=== PATIENT | female | born 1975 | race Caucasian/White ===

== ENCOUNTER 2018-01-01 07:32 | Emergency (ER) | payer OTHER ==
[2018-01-01 07:46] VITALS: BP 149/83; PULSE 59; TEMP 97.7; BMI 44.8
[2018-01-01] MEDS ORDERED: ACETAMINOPHEN 500 MG TABLET (FP) PO ONE (08:03)
[2018-01-01] MEDS ORDERED: ACETAMINOPHEN 325 MG TABLET (FP) ONE (08:08)
--- NOTE | 2018-01-01 08:10 | PDOC ---
History of Present Illness <Robert Ramirez - Last Filed: 01/01/18 09:18> - History of Present Illness Initial Comments: 01/01/18 08:18 "The patient is a 42 year old female with a significant PMH of PCOS who presents to the emergency department with left ankle pain beginning approximately this morning. The patient reports waking this morning with left ankle pain radiating towards her foot. She reports her L ankle hurts when she walks, but she can still ambulate normally. She states she was not experiencing this pain yesterday, She denies any recent injuries. She denies taking any medications for pain. She denies prior history of gout or prior similar left ankle pain. The patient denies chest pain, shortness of breath, headache, and dizziness. Denies fevers, chills, nausea, vomit, diarrhea, and constipation. Denies dysuria, frequency, urgency, and hematuria. Allergies: NKA Past surgical history: Appendectomy. Social history: No reported cigarette, alcohol, or drug use. PCP: Dr. Call. " <Ap Prakash - Last Filed: 01/01/18 10:08> - General Chief Complaint: Pain Stated Complaint: RIGHT FOOT AND ANKLE PAIN Time Seen by Provider: 01/01/18 07:53 Past History <Robert Ramirez - Last Filed: 01/01/18 09:18> - Past Medical History Asthma: No Cancer: No Cardiac Disorders: No COPD: No Diabetes: No HTN: No Seizures: No Thyroid Disease: No - Surgical History Appendectomy: Yes - Reproductive History (#): 3 Para: 1 Cervical CA: No Dysfunctional Uterine Bleeding: No Ectopic : No Endometrial CA: No Polycystic Ovaries: Yes Therapeutic (s) & number: No Tubal Ligation: No - Immunization History Td Vaccination: Yes TDAP Vaccination: Yes Immunization Up to Date: Yes - Suicide/Smoking/Psychosocial Hx Smoking Status: No Smoking History: Never smoked Years of Tobacco Use: 0 Number of Cigarettes Smoked Daily: 0 Cigars Per Day: 0 Hx Alcohol Use: No Drug/Substance Use Hx: No Substance Use Type: None Hx Substance Use Treatment: No <Ap Prakash - Last Filed: 01/01/18 10:08> - Past Medical History Allergies/Adverse Reactions: Allergies Allergy/AdvReac Type Severity Reaction Status Date / Time No Known Allergies Allergy Verified 01/01/18 07:45 Home Medications: Ambulatory Orders NK [No Known Home Medication] 01/01/18 Review of Systems - Review of Systems Comments:: 01/01/18 08:18 "GENERAL/CONSTITUTIONAL: No fever or chills. No weakness. HEAD, EYES, EARS, NOSE AND THROAT: No change in vision. No ear pain or discharge. No sore throat. CARDIOVASCULAR: No chest pain or shortness of breath. RESPIRATORY: No cough, wheezing, or hemoptysis. GASTROINTESTINAL: No nausea, vomiting, diarrhea or constipation. GENITOURINARY: No dysuria, frequency, or change in urination. MUSCULOSKELETAL: (+) Left ankle pain. No neck or back pain. SKIN: No rash NEUROLOGIC: No headache, vertigo, loss of consciousness, or change in strength/ sensation. ENDOCRINE: No increased thirst. No abnormal weight change. HEMATOLOGIC/LYMPHATIC: No anemia, easy bleeding, or history of blood clots. ALLERGIC/IMMUNOLOGIC: No hives or skin allergy. " <Ap Prakash - Last Filed: 01/01/18 10:08> *Physical Exam - Vital Signs Last Vital Signs Temp Pulse Resp BP Pulse Ox 97.7 F 59 L 18 149/83 100 01/01/18 07:43 01/01/18 07:43 01/01/18 07:43 01/01/18 07:43 01/01/18 07:43 <Robert Ramirez - Last Filed: 01/01/18 09:18> - Vital Signs Last Vital Signs Temp Pulse Resp BP Pulse Ox 97.7 F 59 L 18 149/83 100 01/01/18 07:43 01/01/18 07:43 01/01/18 07:43 01/01/18 07:43 01/01/18 07:43 - Physical Exam Comments: 01/01/18 08:18 "GENERAL: Awake, alert, and fully oriented, in no acute distress. HEAD: No signs of trauma EYES: PERRLA, EOMI, sclera anicteric, conjunctiva clear ENT: Auricles normal inspection, hearing grossly normal, nares patent, oropharynx clear without exudates. Moist mucosa NECK: Nontender, no stepoffs, Normal ROM, supple, no lymphadenopathy, JVD, or masses LUNGS: Breath sounds equal, clear to auscultation bilaterally. No wheezes, and no crackles HEART: Regular rate and rhythm, normal S1 and S2, no murmurs, rubs or gallops ABDOMEN: Soft, nontender, normoactive bowel sounds. No guarding, no rebound. No masses EXTREMITIES: +L ankle with mild tenderness posterior to lateral malleolus, no deformity, Normal range of motion, no edema. No clubbing or cyanosis. No cords, erythema, or tenderness NEUROLOGICAL: Cranial nerves II through XII intact. 5/5 strength and sensation in all extremities, Normal speech, normal gait, normal cerebellar function SKIN: Warm, Dry, normal turgor, no rashes or lesions noted. " <Ap Prakash - Last Filed: 01/01/18 10:08> ED Treatment Course - ADDITIONAL ORDERS Additional order review: Laboratory Results 01/01/18 08:55 Urine HCG, Qual Negative - Medications Given in the ED: ED Medications Discontinued Medications Generic Name Dose Route Start Last Admin Trade Name Freq PRN Reason Stop Dose Admin Acetaminophen 1,000 mg 01/01/18 08:03 01/01/18 08:17 Tylenol - PO 01/01/18 08:04 1,000 mg ONCE ONE Administration <Robert Ramirez - Last Filed: 01/01/18 09:18> - RADIOLOGY Radiology Studies Ordered: Category Date Time Status ANKLE-LEFT [RAD] Stat Radiology 01/01/18 08:00 Ordered <Ap Prakash - Last Filed: 01/01/18 10:08> Medical Decision Making - Medical Decision Making 01/01/18 08:04 42 F with atraumatic L ankle pain. Exam notable for tenderness behind lateral malleolus. Low suspicion for acute fx, but given tenderness will r/o with X- ray. Likely mild ankle sprain, as pt with no significant effusion and able to ambulate. - XR L ankle - Pain control 01/01/18 10:07 XR negative. Pt ambulatory with no assistance, stable gait. Pt is well appearing, with normal vitals. Clinically stable for DC at this time. I discussed the physical exam findings, ancillary test results and final diagnoses with the patient. I answered all of the patient's questions. The patient was satisfied with the care received and felt comfortable with the discharge plan and treatment plan. The patient agrees to follow up with the primary care physician within 24-72 hours. <Ou,Ap - Last Filed: 01/01/18 10:08> *DC/Admit/Observation/Transfer - Attestations Scribe Attestion: 01/01/18 09:19 Documentation prepared by Robert Ramirez, acting as medical research associate for Ap Prakash MD. <Robert Ramirez - Last Filed: 01/01/18 09:18> - Attestations Physician Attestion: 01/01/18 10:07 I, Dr. Ap Prakash MD, attest that this document has been prepared under my direction and personally reviewed by me in its entirety. I further attest, that it accurately reflects all work, treatment, procedures and medical decision -making performed by me. <Ap Prakash - Last Filed: 01/01/18 10:08> Diagnosis at time of Disposition: Ankle sprain - Discharge Dispostion Disposition: HOME - Referrals Referrals: Lauro Call MD [Primary Care Provider] - Xavi Alarcon MD [Staff Physician] - - Patient Instructions Printed Discharge Instructions: DI for Ankle Sprain Additional Instructions: Try to keep your leg elevated and apply ice as needed to reduce swelling. Avoid bearing weight when possible. If you experience worsening pain, swelling, redness, difficulty walking, or any other concerning symptoms, return to the ER immediately. If you continue to have pain in 48 hours, follow up with an orthopedist for further evaluation. You may need an MRI to rule out ligament injury. Call the number provided to make an appointment with our orthopedist. - Post Discharge Activity
== END 2018-01-01 10:13 | disposition home or self-care (01) ==
LOC: JER 07:32
DX: S93.402A Sprain of unspecified ligament of left ankle, initial encounter (principal); X58.XXXA Exposure to other specified factors, initial encounter; Y93.89 Activity, other specified; Y92.89 Other specified places as the place of occurrence of the external cause; Y99.8 Other external cause status; E28.2 Polycystic ovarian syndrome
CPT/HCPCS: 73610-TC-LT-FY; 84703; 99282-25

== ENCOUNTER 2018-04-16 18:59 | Emergency (ER) | payer OTHER ==
[2018-04-16 19:08] VITALS: BP 133/75; PULSE 70; TEMP 98.1; BMI 44.8
--- NOTE | 2018-04-16 19:29 | PDOC ---
History of Present Illness - General Chief Complaint: Lightheaded Stated Complaint: DIZZINESS Time Seen by Provider: 04/16/18 19:16 History Source: Patient Exam Limitations: No Limitations - History of Present Illness Initial Comments: 04/16/18 19:44 42 year old female with PCOS presents to ED complaining of headache x3 days associated with lightheadedness. She states her headache is located at the top of her head, 9/10, will move to the back of her head if she lays flat, worse when she lies flat, better when she sits up, not alleviated by Mortin or Tylenol. She admits to photophobia. She denies fever, chills, nausea, vomiting, diarrhea, abdominal pain, chest pain, cough, dizziness like the room is spinning , dysuria, hematuria, blood in stool. She states she will become short of breath when she lays on her side. She states she has a history of headaches, but that they usually go away in an hour or so with Tylenol use. Allergies - NKDA Denies etoh use, nicotine use, or illicit drug use. LMP - 04/09/18 Surgical history - appendectomy, section. Past History - Past Medical History Allergies/Adverse Reactions: Allergies Allergy/AdvReac Type Severity Reaction Status Date / Time No Known Allergies Allergy Verified 01/01/18 07:45 Home Medications: Ambulatory Orders Acetaminophen [Tylenol -] 1,000 mg PO Q6H #12 tablet 04/16/18 Sulfamethoxazole/Trimethoprim [Bactrim Ds -] 1 tab PO BID #5 tablet 04/16/18 Asthma: No Cancer: No Cardiac Disorders: No COPD: No Diabetes: No HTN: No Seizures: No Thyroid Disease: No Other medical history: denies - Surgical History Appendectomy: Yes - Reproductive History (#): 3 Para: 1 Cervical CA: No Dysfunctional Uterine Bleeding: No Ectopic : No Endometrial CA: No Polycystic Ovaries: Yes Therapeutic (s) & number: No Tubal Ligation: No - Immunization History Td Vaccination: Yes TDAP Vaccination: Yes Immunization Up to Date: Yes - Suicide/Smoking/Psychosocial Hx Smoking Status: No Smoking History: Never smoked Years of Tobacco Use: 0 Number of Cigarettes Smoked Daily: 0 Cigars Per Day: 0 Information on smoking cessation initiated: No Hx Alcohol Use: No Drug/Substance Use Hx: No Substance Use Type: None Hx Substance Use Treatment: No Review of Systems - Review of Systems Able to Perform ROS?: Yes Comments:: 04/16/18 19:47 General: denies fever, chills, night sweats, generalized weakness. HEENT: admits to photophobia. denies sore throat, rhinorrhea, ear pain. Heart: admits lightheadedness. denies chest pain, palpitations, syncope, lower extremity swelling, diaphoresis. Respiratory: admits shortness of breath. denies cough, sputum production, hematemesis. Abdomen: denies abdominal pain, nausea, vomiting, diarrhea, constipation, blood in stool. : denies dysuria, increased urinary frequency, hematuria, urinary incontinence , flank pain. Back: denies back pain, flank pain. Musculoskeletal: denies joint pain, muscle pain, joint swelling. Neurological: admits headache. denies dizziness, numbness, tingling, weakness. Skin: denies rash, laceration, abrasion. *Physical Exam - Vital Signs Last Vital Signs Temp Pulse Resp BP Pulse Ox 98.1 F 70 20 133/75 99 04/16/18 19:05 04/16/18 19:05 04/16/18 19:05 04/16/18 19:05 04/16/18 19:05 - Physical Exam Comments: 04/16/18 19:48 Appearance: comfortable. HEENT: head is normocephalic, atraumatic. EOMI. PERRLA. mydriasis bilaterally, 6.5 mm pupils. Neck: supple. Full ROM. Heart: regular rhythm. no murmurs, rubs or gallops. No pericardial friction rub. Lungs: clear to auscultation bilaterally. no crackles, rhonchi or wheezing. no stridor. Abdomen: soft, nontender. normal bowel sounds. no rebound, guarding, masses. Extremities: Peripheral pulses intact and equal. No lower extremity edema. Neurological: Alert. Oriented x3. CN2-12 intact. 5/5 strength all extremities. Full sensation all extremities and bilateral face. Romberg negative. Finger to nose normal. Gait normal. Rapid alternating movements normal. Heart Score/ECG Review - ECG Impressions Comment:: 04/16/18 19:56 Rate 68. regular rhythm. normal axis, no acute ST changes. ED Treatment Course - LABORATORY CBC & Chemistry Diagram: 04/16/18 20:06 04/16/18 20:06 Medical Decision Making - Medical Decision Making 04/16/18 21:08 42 year old female with PMH PCOS presenting for headache x3 days. 05/23. Initial Vital Signs Temp Pulse Resp BP Pulse Ox 98.1 F 70 20 133/75 99 04/16/18 19:05 04/16/18 19:05 04/16/18 19:05 04/16/18 19:05 04/16/18 19:05 Afebrile. No tachycardia. No hypotension. No hypoxia. Pending labs, UA, EKG, Head CT. EKG normal. UA reveals UTI. Bactrim ordered. Blood work normal. Urine test negative. Benadryl, Reglan, Tylenol, fluids ordered. 04/16/18 21:39 Pt reassessed, states her headache is now a 11/20. 04/16/18 21:57 CT head preliminary report - negative for acute hemorrhage or acute infarction. Pt will be discharged with strict return precautions. Prescription sent for Bactrim. *DC/Admit/Observation/Transfer Diagnosis at time of Disposition: Headache, Urinary tract infection - Discharge Dispostion Disposition: HOME Condition at time of disposition: Improved Decision to Admit order: No - Prescriptions Prescriptions: Acetaminophen [Tylenol -] 1,000 mg PO Q6H #12 tablet Sulfamethoxazole/Trimethoprim [Bactrim Ds -] 1 tab PO BID #5 tablet - Referrals - Patient Instructions Printed Discharge Instructions: DI for Urinary Tract Infection (UTI) Additional Instructions: You were seen today for headache. You were given intravenous Reglan, Benadryl and Tylenol, as well as intravenous fluids. Your head CT was negative. I sent a prescription for Tylenol to your pharmacy. Drink lots of water to stay hydrated. Get at least 8 hours of sleep tonight. Your urine analysis revealed a urinary tract infection. You were given the first dose of an antibiotic to treat your infection. I have prescribed you Bactrim and sent the prescription to your pharmacy. Take all of your pills as instructed, do not miss any doses of your antibiotic. Take a probiotic with your antibiotics to prevent antibiotic induced diarrhea. Please follow up with your primary care provider within 7 days. Please bring the paperwork given to you today with you for this appointment. Return to the Emergency Department for increasing pain, blood in urine, flank pain, back pain, abdominal pain, fever, chills, chest pain, shortness of breath , nausea, vomiting or any other new, worsening or concerning symptoms. - Post Discharge Activity Forms/Work/School Notes: Back to Work
--- NOTE | 2018-04-16 19:52 | PDOC ---
Attending Attestation - HPI HPI: 04/16/18 20:11 The patient is a 42 year old female, with a significant PMH of PCOS, who presents to the emergency department with 3 days of headache. The patient states the headache is rated 9/10 in intensity, located on the top of her head, made worse when lying down and alleviated while sitting up. The patient states she has tried Tylenol and Aleve for the headache with minimal relief. The patient states she has a history of headaches which normally resolve with Tylenol/ Aleve. The patient also endorses lightheadedness, photophobia and states she has shortness of breath while lying on her side. The patient denies chest pain, palpitations, leg swelling or calf tenderness. Denies fever, chills, nausea, vomit, diarrhea and constipation. Denies dysuria, frequency, urgency and hematuria. Allergies: NKA Past surgical history: appendectomy, section. Social history: No reported - Physicial Exam PE: 04/16/18 20:13 GENERAL: Awake, alert, and fully oriented, in no acute distress HEAD: No signs of trauma EYES: +Mydriasis bilaterally, 6.5 mm pupils. PERRLA, EOMI, sclera anicteric, conjunctiva clear ENT: Auricles normal inspection, hearing grossly normal, nares patent, oropharynx clear without exudates. Moist mucosa NECK: Normal ROM, supple, no lymphadenopathy, JVD, or masses LUNGS: Breath sounds equal, clear to auscultation bilaterally. No wheezes, and no crackles HEART: Regular rate and rhythm, normal S1 and S2, no murmurs, rubs or gallops ABDOMEN: Soft, nontender, normoactive bowel sounds. No guarding, no rebound. No masses EXTREMITIES: Normal range of motion, no edema. No clubbing or cyanosis. No cords, erythema, or tenderness NEUROLOGICAL: Cranial nerves II through XII grossly intact. Normal speech, normal gait SKIN: Warm, Dry, normal turgor, no rashes or lesions noted. <Saravanan Auguste - Last Filed: 04/16/18 20:13> - Resident Resident Name: Asia Grande - ED Attending Attestation I have performed the following: I have examined & evaluated the patient, The case was reviewed & discussed with the resident, I agree w/resident's findings & plan - Medical Decision Making 04/16/18 21:41 Pt has a UTI, and her SAAVEDRA is a 3/9 with treatment in the ER 04/16/18 21:42 Other labs are normal 04/16/18 22:31 Patient Name: DAMIAN DAVILA THIS IS A PRELIMINARY REPORT FROM [facility] DATE OF SERVICE: 2018-04-16 21:17:10 IMAGES: 142 EXAM: CT head without contrast HISTORY: Headache COMPARISON: None. FINDINGS: There is no evidence of acute infarction. There is no hemorrhage. No mass lesion is seen. There is mild hyperostosis frontalis interna. There is no skull fracture is seen. Mucous retention cysts noted in the left maxillary sinus. There is no free fluid in the sinus cavities. Mastoid air cells are normally pneumatized. Individualized dose optimization techniques were used for this CT. THIS DOCUMENT HAS BEEN ELECTRONICALLY SIGNED Pt feeling better and she will be discharged home. <Paulette Medina - Last Filed: 04/16/18 22:31> Heart Score/ECG Review - ECG Intrepretation Rhythm: Regular Rhythm - [place]: Normal - ST and T Early Repolarization: No Non Specific ST-T Wave changes: Yes Flattened T Waves: No Prolonged Q-T Interval: No - ECG Impressions Normal ECG: Yes Non-specific ST Elevation: No Ischemic Changes: No Bradycardia: No Torsades renu Pointes: No WPW: No <Paulette Medina - Last Filed: 04/16/18 22:31> Attestations - Attestations 04/16/18 20:12 Documentation prepared by Saravanan Auguste, acting as center medical director for Paulette Medina MD. <Saravanan Auguste - Last Filed: 04/16/18 20:13>
[2018-04-16] MEDS ORDERED: METOCLOPRAMIDE HCL INJECTION 10 MG/2 ML VIAL IVPUSH ONE (20:01)
[2018-04-16] MEDS ORDERED: ACETAMINOPHEN 1000 MG/100 ML VIAL (NON FORMULARY) IVPB ONE (20:01)
[2018-04-16] MEDS ORDERED: SODIUM CHLORIDE 1,000 ML IV STA (20:02)
[2018-04-16] MEDS ORDERED: METOCLOPRAMIDE HCL INJECTION 10 MG/2 ML VIAL ONE (20:20)
[2018-04-16] MEDS ORDERED: ACETAMINOPHEN INJECTION 100 ML IVPB ONE (20:21)
[2018-04-16 20:25] LABS: BASO % 0.9 % (0-2.0); EOS % 2.1 % (0-4.5); HEMATOCRIT 36.2 % (32.4-45.2); HEMOGLOBIN 12.2 GM/dL (10.7-15.3); LYMPH % 36.8 % (8-40); MCH 26.2 pg (25.7-33.7); MCHC 33.8 g/dl (32.0-36.0); MEAN CELL VOLUME 77.3 fl (80-96); MEAN PLT VOLUME 8.4 fl (7.5-11.1); MONO % 7.7 % (3.8-10.2); NEUT % 52.5 % (42.8-82.8); PLATELET COUNT 297 K/MM3 (134-434); RBC 4.68 M/mm3 (3.60-5.2); RDW 16.6 % (11.6-15.6); WHITE BLOOD COUNT 6.4 K/mm3 (4.0-10.0)
[2018-04-16 20:37] LABS: PROTHROMBIN TIME (PATIENT) 11.3 SEC (9.7-13.0)
[2018-04-16 20:48] LABS: ALBUMIN 3.4 g/dl (3.4-5.0); ALK PHOS 83 U/L (45-117); ANION GAP 9 (8-16); BILIRUBIN,TOTAL 0.3 mg/dL (0.2-1.0); BLOOD UREA NITROGEN 13 mg/dL (7-18); CALCIUM 9.1 mg/dL (8.5-10.1); CHLORIDE 109 mmol/L (98-107); CO2 27 mmol/L (21-32); CREATININE 0.8 mg/dL (0.55-1.02); GLUCOSE,RANDOM 100 mg/dL (74-106); SGPT/ALT 25 U/L (12-78); SODIUM 145 mmol/L (136-145)
[2018-04-16 20:59] LABS: URINE APPEARANCE SLCLOUDY; URINE BILIRUBIN NEGATIVE (<2.0 mg/dL); URINE COLOR YELLOW; URINE GLUCOSE (UA) NEGATIVE (NEGATIVE); URINE KETONE NEGATIVE (NEGATIVE); URINE LEUK ESTERASE 3+ (NEGATIVE); URINE NITRITE NEGATIVE (NEGATIVE); URINE PROTEIN NEGATIVE (NEGATIVE); URINE UROBILINOGEN NEGATIVE mg/dL (0.2-1.0)
[2018-04-16 21:04] LABS: EPI CELLS MANY /HPF (FEW); URINE HYALINE CAST 1 /lpf; URINE MUCUS RARE
[2018-04-16] MEDS ORDERED: SULFAMETHOXAZOLE/TRIMETHOPRIM 800MG/160MG D.S. TABLET PO ONE (21:08)
[2018-04-16 21:26] LABS: POTASSIUM 4.3 mmol/L (3.5-5.1)
[2018-04-16 21:27] LABS: SGOT/AST 24 U/L (15-37)
[2018-04-16 21:31] LABS: ACTIVATED PTT 30.4 SECONDS (25.2-36.5)
[2018-04-16] MEDS ORDERED: SULFAMETHOXAZOLE/TRIMETHOPRIM 800MG/160MG D.S. TABLET ONE (21:42)
--- NOTE | 2018-04-17 20:02 | EKG ---
Test Reason : Blood Pressure : / mmHG Vent. Rate : 068 BPM Atrial Rate : 068 BPM P-R Int : 132 ms QRS Dur : 084 ms QT Int : 390 ms P-R-T Axes : 039 007 023 degrees QTc Int : 414 ms NORMAL SINUS RHYTHM WITH SINUS ARRHYTHMIA MINIMAL VOLTAGE CRITERIA FOR LVH, MAY BE NORMAL VARIANT NONSPECIFIC ST ABNORMALITY ABNORMAL ECG NO PREVIOUS ECGS AVAILABLE Confirmed by JESÚS CARRASQUILLO MD ([id number]) on 04/17/2018 8:02:38 PM Referred By: Confirmed By:JESÚS CARRASQUILLO MD
== END 2018-04-16 22:25 | disposition home or self-care (01) ==
LOC: JER 18:59
PROC: 3E033NZ Introduction of Analgesics, Hypnotics, Sedatives into Peripheral Vein, Percutaneous Approach (ICD-10-PCS; principal; 2018-04-16)
PROC: 3E033GC Introduction of Other Therapeutic Substance into Peripheral Vein, Percutaneous Approach (ICD-10-PCS; 2018-04-16)
PROC: 3E0337Z Introduction of Electrolytic and Water Balance Substance into Peripheral Vein, Percutaneous Approach (ICD-10-PCS; 2018-04-16)
DX: N39.0 Urinary tract infection, site not specified (principal); R51 Headache; E28.2 Polycystic ovarian syndrome
CPT/HCPCS: 36415; 70450-TC; 80053; 81003; 81015; 84703; 85025; 85027; 85610; 85730; 93005; 93010; 99283-25; J0131; J7030

== ENCOUNTER → 2018-06-02 | Day surgery (SDC) | payer OTHER ==
--- NOTE | 2018-06-06 14:29 | PATH ---
Cytology Non-Gynecological Report Patient Name: DAMIAN DAVILA [facility]. Rec. #: [id number] /Age/Gender: 1975 (Age: 42) / F Account: [id number] Location: RADIOLOGY INTER Taken: 06/02/2018 Received: 06/02/2018 Reported: 06/06/2018 Physicians: Angie Leija M.D. Specimen(s) Received THYROID FNA LEFT Clinical History Left thyroid nodule, 1.53 x 0.61 x 1.08 centimeter Final Diagnosis THYROID, LEFT, FINE NEEDLE ASPIRATION: SATISFACTORY FOR EVALUATION. BETHESDA IV: SUSPICIOUS FOR FOLLICULAR NEOPLASM. FOLLICULAR CELLS WITH MILD NUCLEAR ENLARGEMENT, INTRANUCLEAR CLEARING, AND SUBTLE NUCLEAR GROOVES DISPERSED CELLULAR FRAGMENTS, SYNCYTIAL AGGREGATES, AND FEW MICROFOLLICLES. SEE COMMENT. Comment: Immunohistochemical stains performed at [place], [place] ([id number]) and interpreted at [facility] show chromogranin and calcitonin are negative. Differential diagnosis includes a follicular neoplasm (adenoma/carcinoma), follicular variant of papillary thyroid carcinoma, and Non-invasive follicular thyroid neoplasm with papillary-like nuclear features (NIFTP). Case seen interdepartmentally. Electronically Signed Alesia Garcia M.D. Gross Description Received are eight direct smears, four of which are air-dried and Diff-Quik stained, and four of which are alcohol fixed and Pap stained. Also received is 20 ml of bloody formalin from which one cellblock is prepared.
== END | disposition home or self-care (01) ==
LOC: JRADIR 08:53
PROVIDERS: ATTEND Internal Medicine Endocrinology, Diabetes & Metabolism
PROC: 0G9G3ZX Drainage of Left Thyroid Gland Lobe, Percutaneous Approach, Diagnostic (ICD-10-PCS; principal; 2018-06-02)
DX: E04.1 Nontoxic single thyroid nodule (principal)
CPT/HCPCS: 76942; 88173; 88305-TC

== ENCOUNTER 2018-08-27 11:29 | Emergency (ER) | payer OTHER ==
[2018-08-27 11:38] VITALS: BP 135/86; PULSE 104; TEMP 99.6; BMI 43.9
[2018-08-27] MEDS ORDERED: IBUPROFEN 600 MG TABLET (FP) PO ONE (11:45)
--- NOTE | 2018-08-27 11:45 | PDOC ---
History of Present Illness - General Chief Complaint: Cold Symptoms Stated Complaint: SORE THROAT,HEADACHE, COLD Time Seen by Provider: 08/27/18 11:45 History Source: Patient - History of Present Illness Initial Comments: 08/27/18 12:11 42 year old female with 4 days of tactile temps, chills, sorethroat and lymphadenopathy. denies NVD, abdominal pain, urinary symptoms, chest pain Past History - Past Medical History Allergies/Adverse Reactions: Allergies Allergy/AdvReac Type Severity Reaction Status Date / Time No Known Allergies Allergy Verified 08/27/18 11:36 Home Medications: Ambulatory Orders Acetaminophen [Tylenol -] 1,000 mg PO Q6H #12 tablet 04/16/18 Acetaminophen [Tylenol] 650 mg PO PRN 04/16/18 Sulfamethoxazole/Trimethoprim [Bactrim Ds -] 1 tab PO BID #5 tablet 04/16/18 Amox-Tr/K Cl [Augmentin - 875Mg Tablet] 1 tab PO BID #20 tablet 08/27/18 Asthma: No Cancer: No Cardiac Disorders: No COPD: No Diabetes: No HTN: No Seizures: No Thyroid Disease: No Other medical history: PCOS - Surgical History Appendectomy: Yes - Reproductive History (#): 3 Para: 1 Cervical CA: No Dysfunctional Uterine Bleeding: No Ectopic : No Endometrial CA: No Polycystic Ovaries: Yes Therapeutic (s) & number: No Tubal Ligation: No - Immunization History Td Vaccination: Yes TDAP Vaccination: Yes Immunization Up to Date: Yes - Suicide/Smoking/Psychosocial Hx Smoking Status: No Smoking History: Never smoked Years of Tobacco Use: 0 Number of Cigarettes Smoked Daily: 0 Cigars Per Day: 0 Hx Alcohol Use: No Drug/Substance Use Hx: No Substance Use Type: None Hx Substance Use Treatment: No Review of Systems - Review of Systems Able to Perform ROS?: Yes Is the patient limited [place] proficient: No Constitutional: Yes: Fever HEENTM: Yes: Nose Congestion, Throat Pain *Physical Exam - Vital Signs Last Vital Signs Temp Pulse Resp BP Pulse Ox 99.6 F 104 H 19 135/86 96 08/27/18 11:36 08/27/18 11:36 08/27/18 11:36 08/27/18 11:36 08/27/18 11:36 - Physical Exam General Appearance: Yes: Appropriately Dressed HEENT: positive: Normal Voice, Tonsillar Erythema (with exudate) Neck: positive: Lymphadenopathy (R), Lymphadenopathy (L) Respiratory/Chest: positive: Lungs Clear, Normal Breath Sounds Cardiovascular: positive: Regular Rhythm, Regular Rate Gastrointestinal/Abdominal: positive: Normal Bowel Sounds, Soft Musculoskeletal: positive: Normal Inspection Extremity: positive: Normal Capillary Refill, Coldness Moderate Sedation - Procedure Monitoring Vital Signs: Procedure Monitoring Vital Signs Temperature 99.6 F 08/27/18 11:36 Pulse Rate 104 H 08/27/18 11:36 Respiratory Rate 19 08/27/18 11:36 Blood Pressure 135/86 08/27/18 11:36 O2 Sat by Pulse Oximetry (%) 96 08/27/18 11:36 Progress Note - Progress Note Progress Note: A": strep pharyngitis P: fever control augmentin *DC/Admit/Observation/Transfer Diagnosis at time of Disposition: Strep pharyngitis - Discharge Dispostion Disposition: HOME - Prescriptions Prescriptions: Amox-Tr/K Cl [Augmentin - 875Mg Tablet] 1 tab PO BID #20 tablet - Referrals Referrals: Lauro Call MD [Primary Care Provider] - - Patient Instructions Printed Discharge Instructions: DI for Strep Throat Additional Instructions: gargle with warm salty water take ibuprofen every 6 hours as needed for fever take Augmentin as prescribed drink plenty of fluids follow up with your doctor as soon as possible. - Post Discharge Activity Forms/Work/School Notes: Back to Work
[2018-08-27] MEDS ORDERED: ACETAMINOPHEN 500 MG TABLET (FP) PO ONE (11:50)
[2018-08-27] MEDS ORDERED: ACETAMINOPHEN 325 MG TABLET (FP) ONE (11:53)
== END 2018-08-27 12:38 | disposition home or self-care (01) ==
LOC: JERFT 11:29
DX: J02.0 Streptococcal pharyngitis (principal)
CPT/HCPCS: 87880; 99281-25

== ENCOUNTER 2020-07-25 15:55 | Emergency (ER) | payer OTHER ==
[2020-07-25 16:01] VITALS: BMI 45.7
[2020-07-25] MEDS ORDERED: KETOROLAC TROMETHAMINE 30 MG/1 ML VIAL IVPUSH ONE (16:47)
[2020-07-25] MEDS ORDERED: SODIUM CHLORIDE 1,000 ML IV STA (16:47)
[2020-07-25] MEDS ORDERED: morphine CARPU-JECT 4 MG/1 ML DISP.SYRIN IVPUSH ONE (16:48)
[2020-07-25] MEDS ORDERED: MORPHINE SULFATE 2 MG/ML VIAL ONE (16:52)
[2020-07-25] MEDS ORDERED: KETOROLAC TROMETHAMINE 30 MG/1 ML VIAL ONE (16:52)
[2020-07-25 17:19] LABS: EPI CELLS 15 /uL (0-25.1); HYALINE CASTS 1 /uL (0-3.1); PH,URINE 5.5 (5.0-8.0); URINE APPEARANCE CLEAR; URINE BACTERIA 281 /uL (0-1359); URINE BILIRUBIN NEGATIVE (NEGATIVE); URINE COLOR YELLOW; URINE GLUCOSE (UA) NEGATIVE (NEGATIVE); URINE KETONE NEGATIVE (NEGATIVE); URINE LEUK ESTERASE NEGATIVE (NEGATIVE); URINE NITRITE NEGATIVE (NEGATIVE); URINE PROTEIN NEGATIVE (NEGATIVE); URINE RBC 40 /uL (0-23.9); URINE UROBILINOGEN 0.2 mg/dL (0.2-1.0); URINE WBC 17 /uL (0-25.8)
[2020-07-25 18:26] LABS: HCG,QUALITATIVE URINE Negative
[2020-07-25 19:50] VITALS: BP 148/94; PULSE 84; TEMP 98.4
== END 2020-07-25 21:03 | disposition home or self-care (01) ==
LOC: JER 15:55
PROC: 3E0333Z Introduction of Anti-inflammatory into Peripheral Vein, Percutaneous Approach (ICD-10-PCS; principal; 2020-07-25)
PROC: 3E0337Z Introduction of Electrolytic and Water Balance Substance into Peripheral Vein, Percutaneous Approach (ICD-10-PCS; 2020-07-25)
DX: R10.31 Right lower quadrant pain (principal)
CPT/HCPCS: 74176-TC; 81003; 84703; 87086; 99284-25

== ENCOUNTER 2024-04-07 05:00 | Day surgery (SDC) | payer OTHER ==
[2024-04-05 18:01] VITALS: BMI 36.6
[2024-04-07] MEDS ORDERED: LIDOCAINE HCL/PF 1% SDV 5ML VIAL ONE (07:32)
[2024-04-07] MEDS ORDERED: BUPIVACAINE HCL/PF 0.75% 10 ML VIAL ONE (07:32)
[2024-04-07 11:04] VITALS: TEMP 97.8
[2024-04-07] MEDS ORDERED: ACETAMINOPHEN 500 MG TABLET (FP) PO PRN (11:51)
[2024-04-07] MEDS: LIDOCAINE HCL 1% PRESERVATIVE FREE - 30ML VIAL IJ ONE ×2 (12:55)
[2024-04-07] MEDS: BUPIVACAINE HCL/PF 0.75% 10 ML VIAL NR ONE ×2 (12:55)
[2024-04-07 13:31] VITALS: BP 114/56; PULSE 66; RESP 16
== END 2024-04-07 14:11 | disposition home or self-care (01) ==
LOC: JASU-SURG 05:00
PROVIDERS: ATTEND Pain Medicine Pain Medicine
PROC: 3E0T33Z Introduction of Anti-inflammatory into Peripheral Nerves and Plexi, Percutaneous Approach (ICD-10-PCS; 2024-04-07)
PROC: 3E0T3BZ Introduction of Anesthetic Agent into Peripheral Nerves and Plexi, Percutaneous Approach (ICD-10-PCS; principal; 2024-04-07 12:00)
DX: M47.816 Spondylosis without myelopathy or radiculopathy, lumbar region (principal)
CPT/HCPCS: 76000-TC-FY; 81025

== ENCOUNTER 2024-06-09 03:56 | Day surgery (SDC) | payer OTHER ==
[2024-06-05 17:40] VITALS: BMI 36.6
[2024-06-09] MEDS ORDERED: DEXAMETHASONE SOD PHOSPHATE 10 MG/1 ML VIAL ONE ×2 (07:19→15:06)
[2024-06-09] MEDS ORDERED: LIDOCAINE HCL/PF 1% SDV 5ML VIAL ONE (07:19)
[2024-06-09] MEDS ORDERED: ACETAMINOPHEN 500 MG TABLET (FP) PO PRN (12:24)
[2024-06-09 12:41] VITALS: RESP 20
[2024-06-09] MEDS: LIDOCAINE HCL 1%, 10 MG/ML (50 mL VIAL) INF ONE (15:10)
[2024-06-09] MEDS: DEXAMETHASONE SOD PHOSPHATE 10 MG/1 ML VIAL IVPUSH ONE (15:10)
[2024-06-09] MEDS: IOHEXOL 180 MG/1 ML ML IJ ONE (15:10)
[2024-06-09 16:14] VITALS: BP 108/65; PULSE 67; TEMP 98.2
== END 2024-06-09 15:55 | disposition home or self-care (01) ==
LOC: JASU-SURG 03:56
PROVIDERS: ATTEND Pain Medicine Pain Medicine
PROC: 3E0R3BZ Introduction of Anesthetic Agent into Spinal Canal, Percutaneous Approach (ICD-10-PCS; 2024-06-09)
PROC: 3E0R33Z Introduction of Anti-inflammatory into Spinal Canal, Percutaneous Approach (ICD-10-PCS; principal; 2024-06-09 14:00)
DX: M54.16 Radiculopathy, lumbar region (principal); M48.061 Spinal stenosis, lumbar region without neurogenic claudication
CPT/HCPCS: 76000-TC-FY; 81025; J1100